=== PATIENT | female | born 1990 | race Caucasian/White ===

== ENCOUNTER 2018-03-20 14:05 | Emergency (ER) | payer OTHER ==
[~2018-03-20] VITALS: Ht 154.9 cm; Wt 72.6 kg
[2018-03-20 14:11] VITALS: Ht 154.9 cm; Wt 72.6 kg
[2018-03-20 15:54] VITALS: BP 123/77
== END 2018-03-20 15:54 | disposition home or self-care (01) ==
LOC: ED 14:05
DX: O99.511 Diseases of the respiratory system complicating pregnancy, first trimester (principal); J02.9 Acute pharyngitis, unspecified; Z3A.11 11 weeks gestation of pregnancy

== ENCOUNTER 2018-06-13 15:13 | Emergency (ER) | payer OTHER ==
[2018-06-13 15:20] VITALS: Ht 157.5 cm
[2018-06-13 16:47] VITALS: BP 120/65
== END 2018-06-13 16:47 | disposition home or self-care (01) ==
LOC: ED 15:13
DX: O26.892 Other specified pregnancy related conditions, second trimester (principal); H81.10 Benign paroxysmal vertigo, unspecified ear; Z3A.23 23 weeks gestation of pregnancy
CPT/HCPCS: 82962; J8597